=== PATIENT | male | born 1970 ===

== ENCOUNTER 2021-08-28 19:03 | Emergency (ER) | payer SELFPAY ==
[~2021-08-28] VITALS: Ht 190.5 cm; Wt 99.0 kg
[2021-08-28 20:32] LABS: BASOPHILS % (AUTO) 0.1 % (0-1); EOSINOPHILS % (AUTO) 0 % (0-6); HEMOGLOBIN 14.2 g/dl (14.0-17.9); LYMPHOCYTES # (AUTO) 0.5 X10'3 (1.1-4.8); LYMPHOCYTES % (AUTO) 7.6 % (21-51); MEAN CORPUSCULAR HEMOGLOBIN 28.7 PG (27.0-31.0); MEAN CORPUSCULAR HGB CONC 33.7 g/dL (33.0-36.5); MEAN CORPUSCULAR VOLUME 85.1 FL (78-98); MEAN PLATELET VOLUME 7.6 FL (7.4-10.4); MONOCYTES # (AUTO) 0.6 X10'3 (0-0.9); NEUTROPHILS # (AUTO) 4.8 X10'3 (1.8-7.7); NEUTROPHILS % (AUTO) 81.3 % (42-75); PLATELET COUNT 246 X10'3 (140-440); RED BLOOD COUNT 4.93 X10'6 (4.70-6.10); RED CELL DISTRIBUTION WIDTH 13.7 % (11.5-14.5); WHITE BLOOD COUNT 5.9 X10'3 (4.5-11.0)
[2021-08-28 20:39] LABS: ALANINE AMINOTRANSFERASE 35 U/L (12-78); ALBUMIN 2.8 G/DL (3.4-5.0); ALBUMIN/GLOBULIN RATIO 0.7 (1.1-1.5); ALKALINE PHOSPHATASE 136 IU/L (46-116); ANION GAP 7 (8-16); ASPARTATE AMINO TRANSFERASE 23 U/L (10-37); BILIRUBIN,TOTAL 0.5 MG/DL (0.1-1.0); BLOOD UREA NITROGEN 34 MG/DL (7-18); BUN/CREATININE RATIO 24.5 (5.4-32.0); CHLORIDE 100 MMOL/L (99-107); CREATININE 1.39 MG/DL (0.60-1.10); GLUCOSE 409 MG/DL (70-104); SODIUM 136 MMOL/L (135-145); TOTAL CARBON DIOXIDE 28.7 MMOL/L (24-32); eGFR 54 ML/MIN
[2021-08-28] MEDS ORDERED: iohexol 350MG/ML 100ml bottle IV ONE (22:44)
[2021-08-28] MEDS ORDERED: GABA300C PO (23:15)
[2021-08-28] MEDS ORDERED: LISI20TA28 PO (23:16)
[2021-08-28 23:29] VITALS: BP 140/90
[2021-08-28] MEDS ORDERED: dexamethasone sod phosphate 10mg/ml inj IV STA (23:56)
== END 2021-08-29 00:12 | disposition home or self-care (01) ==
LOC: ER 19:04
DX: U07.1 COVID-19 (principal); J12.82 Pneumonia due to coronavirus disease 2019; Z79.899 Other long term (current) drug therapy
CPT/HCPCS: 36415; 71045; 71275; 80053; 83605; 83880; 84484; 85025; 87040; 87635; 93005; 96374; 99285; C9803; J1100; Q9967